=== PATIENT | female | born 1930 | race Caucasian/White ===

== ENCOUNTER → 2016-07-01 | Outpatient (CLI) | payer MEDICARE ==
[~2016-07-01] MED LIST: AMBIEN 5MG TABLE5 MG PO; ASPIRIN 32325 MG/TAB PO; ATORVASTATIN CA20 MG PO; Aspirin EC PO; CLOPIDOGREL PO; COLACE 100100 MG/CAP PO; FOLIC ACID0.4 MG PO; IRON325 M1 PO; LIPITOR 40MG TA40 MG PO; LOPRESSOR 225 MG/TAB PO; MIRALAX17 GM/DOSE PO; NITROSTAT0.4 MG/TAB SL; NORCO 325 MG-51 TA1 PO; PEPCID 20MG TAB20 MG PO; PLAVIX 75MG TAB75 MG PO; SENOKOT S 50 MG1 TAB PO; TYLENOL 500MG500 MG PO; ULTRAM 50MG TAB50 MG PO; ULTRAM50 MG PO; VITAMIN C500 MG PO; ZESTRIL 5MG5 MG PO; ZESTRIL5 MG PO
== END ==
LOC: LAB 10:26
DX: K52.9 Noninfective gastroenteritis and colitis, unspecified (principal)

== ENCOUNTER → 2017-10-27 | Outpatient (CLI) | payer MEDICARE ==
[2014-01-06 06:18] VITALS: BP 135/77
[2017-10-27 09:42] LABS: EOS # 0.2 (0.04-0.40); EOS % 2.4 % (1.0-5.0); HEMATOCRIT 48.8 % (37.0-47.0); HEMOGLOBIN 15.6 g/dL (12.5-16.0); LYMPH# 2.9 (1.50-4.00); MEAN CELL VOLUME 91 fl (78-100); MEAN CORPUSCULAR HEMOGLOBIN 29 pg (27-31); MEAN CORPUSCULAR HGB CONC 32 g/dL (33-37); MEAN PLATELET VOLUME 9.8 fl (7.4-10.4); MONO # 0.6 (0.20-0.80); NEU # 4.2 (1.40-6.50); PLATELET COUNT 218 K/mm3 (130-400); RED BLOOD COUNT 5.36 M/mm3 (4.10-5.30); RED CELL DISTRIBUTION WIDTH 14.1 % (11.5-14.5); WHITE BLOOD COUNT 7.9 K/mm3 (4.8-10.8)
[2017-10-27 10:18] LABS: ALBUMIN 4.1 g/dL (3.5-5.0); BUN/CREATININE RATIO 20.3 (6.0-26.0); CALCIUM 9.8 mg/dL (8.4-10.2); POTASSIUM 4.2 mmol/L (3.6-5.0); TOTAL BILIRUBIN 0.6 mg/dL (0.2-1.3); TOTAL PROTEIN 7.5 g/dL (6.3-8.2)
== END ==
LOC: LAB 09:15
PROVIDERS: Nurse Practitioner Family
DX: I10 Essential (primary) hypertension (principal); I25.10 Atherosclerotic heart disease of native coronary artery without angina pectoris; N32.81 Overactive bladder

== ENCOUNTER → 2017-12-08 | Outpatient (CLI) | payer MEDICARE ==
[2014-01-06 06:18] VITALS: BP 135/77
== END ==
LOC: RAD 15:45
DX: M41.9 Scoliosis, unspecified (principal); I10 Essential (primary) hypertension

== ENCOUNTER → 2018-10-22 | Outpatient (CLI) | payer MEDICARE ==
[2014-01-06 06:18] VITALS: BP 135/77
[2018-10-22 15:31] LABS: EOS # 0.1 (0.04-0.40); EOS % 1.4 % (1.0-5.0); HEMATOCRIT 45.6 % (37.0-47.0); HEMOGLOBIN 14.4 g/dL (12.5-16.0); LYMPH# 2.2 (1.50-4.00); MEAN CELL VOLUME 91 fl (78-100); MEAN CORPUSCULAR HEMOGLOBIN 29 pg (27-31); MEAN CORPUSCULAR HGB CONC 32 g/dL (33-37); MEAN PLATELET VOLUME 9.9 fl (7.4-10.4); MONO # 0.6 (0.20-0.80); NEU # 4.7 (1.40-6.50); PLATELET COUNT 252 K/mm3 (130-400); RED BLOOD COUNT 5.04 M/mm3 (4.10-5.30); RED CELL DISTRIBUTION WIDTH 14.4 % (11.5-14.5); WHITE BLOOD COUNT 7.7 K/mm3 (4.8-10.8)
[2018-10-22 16:36] LABS: ALBUMIN 3.8 g/dL (3.4-4.8); CALCIUM 9.8 mg/dL (8.3-10.5); POTASSIUM 3.6 mmol/L (3.5-5.1); TOTAL BILIRUBIN 0.8 mg/dL (0.2-1.2); TOTAL PROTEIN 6.9 g/dL (6.2-8.1)
[2018-10-26 23:01] LABS: HEPATITIS C ANTIBODY Negative (Negative)
== END ==
LOC: LAB 15:11
PROVIDERS: Family Medicine
DX: Z00.00 Encounter for general adult medical examination without abnormal findings (principal); I10 Essential (primary) hypertension; R53.83 Other fatigue; E55.9 Vitamin D deficiency, unspecified

== ENCOUNTER → 2018-10-28 | Outpatient (CLI) | payer MEDICARE ==
[2014-01-06 06:18] VITALS: BP 135/77
== END ==
LOC: RAD 12:08
DX: R10.11 Right upper quadrant pain (principal); I10 Essential (primary) hypertension; Z90.49 Acquired absence of other specified parts of digestive tract

== ENCOUNTER → 2019-12-16 | Outpatient (CLI) | payer MEDICARE ==
[2014-01-06 06:18] VITALS: BP 135/77
[2019-12-16 16:52] LABS: EOS # 0.2 (0.04-0.40); EOS % 2.1 % (1.0-5.0); HEMATOCRIT 44.8 % (37.0-47.0); HEMOGLOBIN 14.5 g/dL (12.5-16.0); LYMPH# 2.9 (1.50-4.00); MEAN CELL VOLUME 91 fl (78-100); MEAN CORPUSCULAR HEMOGLOBIN 29 pg (27-31); MEAN CORPUSCULAR HGB CONC 32 g/dL (33-37); MEAN PLATELET VOLUME 10.4 fl (7.4-10.4); MONO # 0.6 (0.20-0.80); NEU # 4.8 (1.40-6.50); PLATELET COUNT 218 K/mm3 (130-400); RED BLOOD COUNT 4.93 M/mm3 (4.10-5.30); RED CELL DISTRIBUTION WIDTH 13.8 % (11.5-14.5); WHITE BLOOD COUNT 8.5 K/mm3 (4.8-10.8)
[2019-12-16 16:57] LABS: ALBUMIN 4.2 g/dL (3.4-4.8)
[2019-12-16 16:58] LABS: CALCIUM 10.3 mg/dL (8.3-10.5)
[2019-12-16 16:59] LABS: TOTAL PROTEIN 7.4 g/dL (6.2-8.1)
[2019-12-16 17:01] LABS: TOTAL BILIRUBIN 0.3 mg/dL (0.2-1.2)
== END ==
LOC: LAB 16:25
PROVIDERS: Family Medicine
DX: Z00.00 Encounter for general adult medical examination without abnormal findings (principal); E78.5 Hyperlipidemia, unspecified

== ENCOUNTER 2020-08-08 10:59 | Emergency (ER) | payer MEDICARE ==
[2020-08-08 12:00] LABS: EOS # 0.2 (0.04-0.40); EOS % 2.5 % (1.0-5.0); HEMATOCRIT 43.9 % (37.0-47.0); HEMOGLOBIN 14.2 g/dL (12.5-16.0); LYMPH# 1.4 (1.50-4.00); MEAN CELL VOLUME 90 fl (78-100); MEAN CORPUSCULAR HEMOGLOBIN 29 pg (27-31); MEAN CORPUSCULAR HGB CONC 32 g/dL (33-37); MEAN PLATELET VOLUME 10.7 fl (7.4-10.4); MONO # 0.6 (0.20-0.80); NEU # 5.2 (1.40-6.50); PLATELET COUNT 174 K/mm3 (130-400); RED BLOOD COUNT 4.86 M/mm3 (4.10-5.30); RED CELL DISTRIBUTION WIDTH 14.3 % (11.5-14.5); WHITE BLOOD COUNT 7.5 K/mm3 (4.8-10.8)
[2020-08-08 12:12] LABS: ALBUMIN 3.8 g/dL (3.4-4.8)
[2020-08-08 12:13] LABS: POTASSIUM 3.6 mmol/L (3.5-5.1)
[2020-08-08 12:14] LABS: CALCIUM 9.5 mg/dL (8.3-10.5)
[2020-08-08 12:15] LABS: TOTAL PROTEIN 6.7 g/dL (6.2-8.1)
[2020-08-08 12:17] LABS: TOTAL BILIRUBIN 0.6 mg/dL (0.2-1.2)
[2020-08-08] MEDS ORDERED: METOPROLOL SUCC50 M1 PO (14:15)
[2020-08-08] MEDS ORDERED: LISINOPRIL AND1 TA1 PO (14:16)
[2020-08-08 15:00] VITALS: BP 148/81
== END 2020-08-08 14:45 | disposition other institution (70) ==
LOC: ED 10:59
PROVIDERS: Physician Assistant
DX: S22.080A Wedge compression fracture of T11-T12 vertebra, initial encounter for closed fracture (principal); I10 Essential (primary) hypertension; W18.2XXA Fall in (into) shower or empty bathtub, initial encounter; Y92.002 Bathroom of unspecified non-institutional (private) residence as the place of occurrence of the external cause

== ENCOUNTER 2020-08-08 13:52 | Observation (INO) | payer MEDICARE ==
[2020-08-08] MEDS ORDERED: METOPROLOL SUCC50 M1 PO (14:15)
[2020-08-08] MEDS ORDERED: LISINOPRIL AND1 TA1 PO (14:16)
[2020-08-08 14:48] VITALS: BP 148/81
[2020-08-08 15:36] VITALS: BP 148/81
[2020-08-08 17:30] VITALS: BP 113/65
[2020-08-08 22:01] VITALS: BP 121/67
[2020-08-09 02:05] VITALS: BP 104/67
[2020-08-09 06:23] VITALS: BP 102/67
[2020-08-09 07:23] LABS: URINE APPEARANCE HAZY; URINE COLOR DARK YELLOW; URINE PROTEIN(semi-quant) TRACE mg/dL (NEGATIVE)
[2020-08-09 07:24] LABS: URINE BILIRUBIN NEGATIVE (NEGATIVE); URINE BLOOD TRACE (NEGATIVE); URINE GLUCOSE NEGATIVE (NEGATIVE); URINE KETONE NEGATIVE (NEGATIVE); URINE LEUKOCYTE ESTERASE TRACE (NEGATIVE); URINE MUCUS PRESENT (NOT PRESENT); URINE NITRATE NEGATIVE (NEGATIVE); URINE UROBILINOGEN 1 mg/dL (NORMAL); URINE WBC 16-30 /hpf (0-3)
[2020-08-09 09:44] VITALS: BP 112/62
[2020-08-09 14:03] VITALS: BP 113/73
[2020-08-09 18:12] VITALS: BP 98/59
[2020-08-09 22:00] VITALS: BP 123/97
[2020-08-10 01:42] VITALS: BP 121/69
[2020-08-10 05:54] VITALS: BP 123/75
[2020-08-10 09:59] VITALS: BP 116/67
[2020-08-10 14:14] VITALS: BP 125/72
== END 2020-08-10 13:45 | disposition swing bed (61) ==
LOC: MED/SURG 13:52
PROVIDERS: Family Medicine; ADMIT Physician Assistant
DX: M48.54XA Collapsed vertebra, not elsewhere classified, thoracic region, initial encounter for fracture (principal); I25.810 Atherosclerosis of coronary artery bypass graft(s) without angina pectoris; N39.0 Urinary tract infection, site not specified; R47.01 Aphasia; I10 Essential (primary) hypertension; F03.90 Unspecified dementia, unspecified severity, without behavioral disturbance, psychotic disturbance, mood disturbance, and anxiety; R53.81 Other malaise; W18.2XXA Fall in (into) shower or empty bathtub, initial encounter; Z66 Do not resuscitate; Y92.002 Bathroom of unspecified non-institutional (private) residence as the place of occurrence of the external cause; Z91.81 History of falling
CPT/HCPCS: G0378; J0696; J1650; J1885

== ENCOUNTER 2020-08-10 13:45 | Inpatient (IN) | payer MEDICARE ==
[~2020-08-10 13:45] MED LIST changes: +LISINOPRIL AND1 TA1 PO; +METOPROLOL SUCC50 M1 PO
[2020-08-10 14:49] VITALS: BP 125/72
[2020-08-10 17:35] VITALS: BP 131/74
[2020-08-11 05:37] VITALS: BP 108/67
[2020-08-11 07:10] LABS: EOS # 0.3 (0.04-0.40); EOS % 4.1 % (1.0-5.0); HEMATOCRIT 41.1 % (37.0-47.0); HEMOGLOBIN 13.3 g/dL (12.5-16.0); LYMPH# 1.9 (1.50-4.00); MEAN CELL VOLUME 91 fl (78-100); MEAN CORPUSCULAR HEMOGLOBIN 30 pg (27-31); MEAN CORPUSCULAR HGB CONC 32 g/dL (33-37); MEAN PLATELET VOLUME 9.8 fl (7.4-10.4); MONO # 0.7 (0.20-0.80); NEU # 3.5 (1.40-6.50); PLATELET COUNT 208 K/mm3 (130-400); RED CELL DISTRIBUTION WIDTH 14.1 % (11.5-14.5); WHITE BLOOD COUNT 6.4 K/mm3 (4.8-10.8)
[2020-08-11 07:15] LABS: ALBUMIN 3.5 g/dL (3.4-4.8)
[2020-08-11 07:16] LABS: CALCIUM 9.7 mg/dL (8.3-10.5)
[2020-08-11 07:18] LABS: TOTAL PROTEIN 6.2 g/dL (6.2-8.1)
[2020-08-11 07:19] LABS: TOTAL BILIRUBIN 0.5 mg/dL (0.2-1.2)
[2020-08-11 08:20] VITALS: BP 116/68
[2020-08-11 08:34] LABS: URINE APPEARANCE CLEAR; URINE COLOR YELLOW
[2020-08-11 08:35] LABS: URINE BILIRUBIN NEGATIVE (NEGATIVE); URINE BLOOD TRACE (NEGATIVE); URINE GLUCOSE NEGATIVE (NEGATIVE); URINE KETONE NEGATIVE (NEGATIVE); URINE LEUKOCYTE ESTERASE TRACE (NEGATIVE); URINE NITRATE NEGATIVE (NEGATIVE); URINE PROTEIN(semi-quant) NEGATIVE (NEGATIVE); URINE UROBILINOGEN NORMAL (NORMAL)
[2020-08-11 17:08] VITALS: BP 114/66
[2020-08-12 05:48] VITALS: BP 130/72
[2020-08-12 17:17] VITALS: BP 115/72
[2020-08-13 05:56] VITALS: BP 110/63
[2020-08-13 13:35] VITALS: BP 106/64
== END 2020-08-13 14:30 | disposition home health service (06) | DRG 552 ==
LOC: MED/SURG 13:45
PROVIDERS: ADMIT Nurse Practitioner
DX: S22.089A Unspecified fracture of T11-T12 vertebra, initial encounter for closed fracture (principal); N39.0 Urinary tract infection, site not specified; R47.01 Aphasia; I10 Essential (primary) hypertension; I25.10 Atherosclerotic heart disease of native coronary artery without angina pectoris; R53.81 Other malaise; F03.90 Unspecified dementia, unspecified severity, without behavioral disturbance, psychotic disturbance, mood disturbance, and anxiety; Y92.002 Bathroom of unspecified non-institutional (private) residence as the place of occurrence of the external cause; W18.2XXA Fall in (into) shower or empty bathtub, initial encounter; Z91.81 History of falling
CPT/HCPCS: J0696; J1650

== ENCOUNTER → 2021-07-24 | Outpatient (CLI) | payer MEDICARE ==
[2021-07-24 10:49] LABS: BASO # 0.03 K/mm3 (0.02-0.10); EOS # 0.11 K/mm3 (0.04-0.40); EOS % 1.5 % (1.0-5.0); HEMATOCRIT 46.8 % (37.0-47.0); HEMOGLOBIN 15.2 g/dL (12.5-16.0); LYMPH# 2.18 K/mm3 (1.50-4.00); MEAN CELL VOLUME 92 fl (78-100); MEAN CORPUSCULAR HEMOGLOBIN 30 pg (27-31); MEAN CORPUSCULAR HGB CONC 33 g/dL (33-37); MEAN PLATELET VOLUME 10.3 fl (7.4-10.4); MONO # 0.49 K/mm3 (0.20-0.80); NEU # 4.36 K/mm3 (1.40-6.50); PLATELET COUNT 214 K/mm3 (130-400); RED CELL DISTRIBUTION WIDTH 14.1 % (11.5-14.5); WHITE BLOOD COUNT 7.2 K/mm3 (4.8-10.8)
[2021-07-24 10:52] LABS: POTASSIUM 4.2 mmol/L (3.5-5.1)
[2021-07-24 10:54] LABS: CALCIUM 10.3 mg/dL (8.3-10.5)
[2021-07-24 10:55] LABS: TOTAL PROTEIN 6.8 g/dL (6.2-8.1)
[2021-07-24 10:57] LABS: TOTAL BILIRUBIN 0.6 mg/dL (0.2-1.2)
== END ==
LOC: LAB 10:06
PROVIDERS: Family Medicine
DX: Z00.00 Encounter for general adult medical examination without abnormal findings (principal); E78.5 Hyperlipidemia, unspecified; F03.90 Unspecified dementia, unspecified severity, without behavioral disturbance, psychotic disturbance, mood disturbance, and anxiety; E55.9 Vitamin D deficiency, unspecified; I25.10 Atherosclerotic heart disease of native coronary artery without angina pectoris; I10 Essential (primary) hypertension; K52.9 Noninfective gastroenteritis and colitis, unspecified; E66.9 Obesity, unspecified; M19.90 Unspecified osteoarthritis, unspecified site; R29.6 Repeated falls